=== PATIENT | male | born 1975 | race Caucasian/White ===

== ENCOUNTER 2025-04-23 19:25 | Inpatient (IN) | payer OTHER ==
[~2025-04-23] VITALS: Ht 185.4 cm; Wt 85.0 kg
[2025-04-23] MEDS: MIDAZOLAM INJ 2 MG/2 ML VIAL IV ONE (19:35)
[2025-04-23 19:42] LABS: VENOUS BASE EXCESS -3.2 (-2.0-2.0); VENOUS HCO3 22.9 MMOL/L (23.0-27.0); VENOUS O2 SATURATION 58.5 % (60.0-80.0); VENOUS PARTIAL PRESSURE CO2 45.5 mmHg (38.0-50.0); VENOUS PARTIAL PRESSURE O2 32.1 mmHg (30.0-50.0); VENOUS PH 7.319 UNITS (7.330-7.430); VENOUS STANDARD HCO3 21.2 MMOL/L; VENOUS TOTAL CO2 24.3 MMOL/L (24.0-28.0)
[2025-04-23] MEDS: MIDAZOLAM INJ 2 MG/2 ML VIAL IV STA ×2 (19:44→22:02)
[2025-04-23 19:50] LABS: BASO # 0.1 10^3/uL (0.0-0.2); BASO % 0.3 % (0.0-1.0); EOS # 0.3 10^3/uL (0.0-0.5); EOS % 1.3 % (0.0-3.0); LYMPH # 1.7 10^3/uL (1.5-5.0); LYMPH % 8.0 % (24.0-44.0); MONO # 1.3 10^3/uL (0.0-0.8); MONO % 6.2 % (2.0-8.0); NEUTROPHILS # 17.3 10^3/uL (1.5-8.5); NEUTROPHILS % 83.8 % (36.0-66.0); PLATELET COUNT, AUTOMATED 324 10^3/uL (150-450)
[2025-04-23 20:14] LABS: ETHYL ALCOHOL (ETHANOL) < 0.003 % (0.000-0.010)
[2025-04-23 20:15] LABS: CPK CREATINE PHOSPHOKINASE 65 U/L (46-171)
[2025-04-23 20:16] LABS: ALT/SGPT < 9 U/L (7.0-40); AST/SGOT 11 U/L (<34); CALCIUM LEVEL 8.3 MG/DL (8.5-10.1); CARBON DIOXIDE LEVEL 24 MMOL/L (20-31); CHLORIDE LEVEL 105 MMOL/L (98-107); CK-MB VALUE MASS 3.0 NG/ML (<3.6); CREATININE FOR GFR 2.29 MG/DL (0.70-1.30); GLOMERULAR FILTRATION RATE 33.9 (>56); MB/CK RELATIVE INDEX 4.61 (< OR =4); POTASSIUM SERUM 4.1 MMOL/L (3.5-5.1); SALICYLATE LEVEL < 3.0 MG/DL (<30); SODIUM LEVEL 138 MMOL/L (136-145)
[2025-04-23 20:18] LABS: KETONE, URINE AUTO RFX NEGATIVE (NEGATIVE); NITRITE, URINE AUTO RFX NEGATIVE (NEGATIVE); RBC, URINE AUTO RFX 24 /HPF (0-3); SQUAM EPITHELIAL CELL UR AURFX 1 /HPF (0-6); YEAST LIKE CELL URINE AUTO RFX LARGE
[2025-04-23 20:19] LABS: LEUKOCYTE ESTERASE UR AUTO RFX 3+ (NEGATIVE); WBC, URINE AUTO RFX 78 /HPF (0-3)
[2025-04-23 20:24] LABS: AMPHETAMINES LEVEL URINE NEGATIVE (NEGATIVE); BARBITURATES URINE NEGATIVE (NEGATIVE); BENZODIAZEPINES URINE NEGATIVE (NEGATIVE); COCAINE METABOLITE URINE NEGATIVE (NEGATIVE); METHADONE URINE NEGATIVE (NEGATIVE); OPIATES URINE NEGATIVE (NEGATIVE); PHENCYCLIDINE URINE NEGATIVE (NEGATIVE)
[2025-04-23 20:26] LABS: CANNABINOIDS URINE POSITIVE (NEGATIVE)
[2025-04-23] MEDS: CEFEPIME HCL 2 GM in DEXTROSE 5% (D5W) ADV/MINI-BAG 50 ML IV ONE (21:10)
[2025-04-23] MEDS: NS (Normal Saline) 0.9% 1,000 ML IV ONE ×2 (21:10→21:30)
[2025-04-23] MEDS ORDERED: VANCOMYCIN HCL 1,000 MG in IV FLUID PLACE HOLDER 1 EA IV ONE (22:05)
[2025-04-23] MEDS: VANCOMYCIN HCL 1,000 MG, VIAL MATE ADAPTER 1 EACH in NS 250 ML IV ONE (22:30)
[2025-04-23] MEDS ORDERED: LEVO75TA34 PO (22:41)
[2025-04-23] MEDS ORDERED: LISI40TA10 PO (22:41)
[2025-04-23] MEDS ORDERED: LANTINJ4 SC (22:41)
[2025-04-23] MEDS ORDERED: GABA-1172 PO (22:41)
[2025-04-23] MEDS ORDERED: METO1TAB7 PO (22:41)
[2025-04-23] MEDS ORDERED: OXYC10TA3 PO (22:41)
[2025-04-23] MEDS ORDERED: MIDO10TA3 PO (22:41)
[2025-04-23] MEDS ORDERED: ATIV1TAB10 PO (22:41)
[2025-04-23] MEDS ORDERED: VENTAER INH (22:41)
[2025-04-23] MEDS ORDERED: ATOR80TA59 PO (22:41)
[2025-04-23] MEDS ORDERED: MIRT-88 PO (22:41)
[2025-04-23] MEDS ORDERED: MED REC COMMENT (22:58)
[2025-04-23] MEDS ORDERED: FAMO40TA3 PO (23:14)
[2025-04-23] MEDS ORDERED: HOME MED LIST COMPLETE! XX SCH (23:15)
[2025-04-24] VITALS (25 sets, daily range): BP systolic 128–170; BP diastolic 68–87; TEMP 97.3–98.5; O2SAT 93–100
[2025-04-24] MEDS ORDERED: GLUCOSE 4 GM CHEW PO PRN ×2 (00:25→06:40)
[2025-04-24] MEDS ORDERED: GLUCAGON INJ 1 MG VIAL SC PRN ×2 (00:25→06:40)
[2025-04-24] MEDS ORDERED: DEXTROSE 50% 50 ML SYRINGE IV PRN ×2 (00:25→06:40)
[2025-04-24] MEDS ORDERED: CLOP75TA2 PO (00:43)
[2025-04-24] MEDS ORDERED: LEVO25TA5 PO (00:43)
[2025-04-24] MEDS: NS (Normal Saline) 0.9% 1,000 ML IV SCH (01:49)
[2025-04-24] MEDS: ACETAMINOPHEN *IV* 1,000 MG in IV 1 EA IV ONE (01:56)
[2025-04-24] MEDS: OLANZapine INTRAMUSCULAR 10MG VIAL IM STA ×2 (01:56→23:07)
[2025-04-24] MEDS: INSULIN LISPRO (NovoLOG) PER UNIT SC SCH (02:17)
[2025-04-24] MEDS: CEFEPIME HCL 2 GM in DEXTROSE 5% (D5W) ADV/MINI-BAG 50 ML IV SCH (05:04)
[2025-04-24 05:52] LABS: PLATELET COUNT, AUTOMATED 324 10^3/uL (150-450)
[2025-04-24 06:15] LABS: ALT/SGPT < 9 U/L (7.0-40); AST/SGOT 10 U/L (<34); CALCIUM LEVEL 8.2 MG/DL (8.5-10.1); CARBON DIOXIDE LEVEL 22 MMOL/L (20-31); CHLORIDE LEVEL 107 MMOL/L (98-107); CREATININE FOR GFR 2.37 MG/DL (0.70-1.30); GLOMERULAR FILTRATION RATE 32.6 (>56); POTASSIUM SERUM 3.9 MMOL/L (3.5-5.1); SODIUM LEVEL 140 MMOL/L (136-145)
[2025-04-24] MEDS ORDERED: VANCOMYCIN HCL 1,000 MG, VIAL MATE ADAPTER 1 EACH in NS 250 ML IV SCH (08:00)
[2025-04-24] MEDS: VANCOMYCIN HCL 1,000 MG, VIAL MATE ADAPTER 1 EACH in NS 250 ML IV SCH (08:37)
[2025-04-24] MEDS: CLOPIDOGREL 75 MG TAB PO SCH (09:00)
[2025-04-24] MEDS: HEPARIN SOD 5000 UNITS/ML 1 ML VIAL/SYRINGE SC SCH (09:00)
[2025-04-24] MEDS: METOPROLOL SUCC. 50 MG *XL* TAB PO SCH (09:00)
[2025-04-24] MEDS: ATORVASTATIN 20 MG TAB PO SCH (09:00)
[2025-04-24] MEDS: FAMOTIDINE 20 MG TAB PO SCH (09:00)
[2025-04-24] MEDS: LEVOTHYROXINE 25 MCG TABLET (0.025MG) PO SCH (10:51)
[2025-04-24] MEDS ORDERED: CEFEPIME HCL 2 GM in DEXTROSE 5% (D5W) ADV/MINI-BAG 50 ML IV SCH (17:00)
[2025-04-24] MEDS: METOPROLOL 5 MG/5 ML VIAL IV SCH (17:15)
[2025-04-24] MEDS: cefTRIAXone SOD 1 GM in DEXTROSE 5% (D5W) ADV/MINI-BAG 50 ML IV SCH (17:38)
[2025-04-24 20:37] LABS: CPK CREATINE PHOSPHOKINASE 43 U/L (46-171)
[2025-04-24] MEDS: MIRTAZAPINE 15 MG TAB PO SCH (20:42)
[2025-04-24] MEDS: cefTRIAXone SOD 1 GM in DEXTROSE 5% (D5W) ADV/MINI-BAG 50 ML IV ONE (20:42)
[2025-04-24] MEDS ORDERED: OLANZapine INTRAMUSCULAR 10MG VIAL IM ONE (22:55)
[2025-04-24] MEDS: DAPTOmycin 700 MG in NS 50 ML IV SCH (23:33)
[2025-04-25] VITALS (43 sets, daily range): BP systolic 152–189; BP diastolic 80–101; TEMP 97.1–98; O2SAT 89–99
[2025-04-25 05:29] LABS: BASO # 0.1 10^3/uL (0.0-0.2); BASO % 0.3 % (0.0-1.0); EOS # 0.1 10^3/uL (0.0-0.5); EOS % 0.7 % (0.0-3.0); LYMPH # 1.3 10^3/uL (1.5-5.0); LYMPH % 7.0 % (24.0-44.0); MONO # 1.2 10^3/uL (0.0-0.8); MONO % 6.6 % (2.0-8.0); NEUTROPHILS # 15.3 10^3/uL (1.5-8.5); NEUTROPHILS % 85.1 % (36.0-66.0); PLATELET COUNT, AUTOMATED 292 10^3/uL (150-450)
[2025-04-25 05:51] LABS: CALCIUM LEVEL 8.4 MG/DL (8.5-10.1); CARBON DIOXIDE LEVEL 19.0 MMOL/L (20-31); CHLORIDE LEVEL 112.0 MMOL/L (98-107); CREATININE FOR GFR 2.6 MG/DL (0.70-1.30); GLOMERULAR FILTRATION RATE 29.1 (>56); POTASSIUM SERUM 3.8 MMOL/L (3.5-5.1); SODIUM LEVEL 145.0 MMOL/L (136-145)
[2025-04-25 06:02] LABS: C REACTIVE PROTEIN QUANTITATIV 20.07 MG/DL (<1.0)
[2025-04-25] MEDS: LR 1,000 ML IV SCH (06:59)
[2025-04-25] MEDS: NICOTINE 14 MG/24 HR TRANSDERMAL TD SCH (10:23)
[2025-04-25] MEDS: SODIUM BICARBONATE 150 MEQ in D5W 1,000 ML IV SCH (13:25)
[2025-04-25] MEDS: LABETALOL 100 MG/20 ML VIAL IV STA (14:07)
[2025-04-25 16:18] LABS: VITAMIN B12 LEVEL 611.0 PG/ML (211-911)
[2025-04-25 16:20] LABS: IRON (FE) 17.0 UG/DL (65-175); PERCENT SATURATION 8.9 % (19.7-50.0)
[2025-04-25] MEDS: cefTRIAXone SOD 2 GM in DEXTROSE 5% (D5W) ADV/MINI-BAG 50 ML IV SCH (17:44)
[2025-04-25] MEDS: ONDANSETRON 4MG/2ML VIAL IV PRN (18:31)
[2025-04-25] MEDS: amLODIPine 10 MG TAB PO SCH (19:50)
[2025-04-25] MEDS: OLANZapine INTRAMUSCULAR 10MG VIAL IM ONE (21:46)
[2025-04-26] VITALS (42 sets, daily range): BP systolic 156–197; BP diastolic 74–102; TEMP 97–98.9; O2SAT 86–96
[2025-04-26 05:43] LABS: BASO # 0.0 10^3/uL (0.0-0.2); BASO % 0.3 % (0.0-1.0); EOS # 0.1 10^3/uL (0.0-0.5); EOS % 0.8 % (0.0-3.0); LYMPH # 1.2 10^3/uL (1.5-5.0); LYMPH % 9.4 % (24.0-44.0); MONO # 0.8 10^3/uL (0.0-0.8); MONO % 6.7 % (2.0-8.0); NEUTROPHILS # 10.3 10^3/uL (1.5-8.5); NEUTROPHILS % 82.4 % (36.0-66.0); PLATELET COUNT, AUTOMATED 281 10^3/uL (150-450)
[2025-04-26 06:13] LABS: CALCIUM LEVEL 8.2 MG/DL (8.5-10.1); CARBON DIOXIDE LEVEL 26.0 MMOL/L (20-31); CHLORIDE LEVEL 111.0 MMOL/L (98-107); CREATININE FOR GFR 2.32 MG/DL (0.70-1.30); GLOMERULAR FILTRATION RATE 33.4 (>56); POTASSIUM SERUM 3.3 MMOL/L (3.5-5.1); SODIUM LEVEL 149.0 MMOL/L (136-145)
[2025-04-26] MEDS ORDERED: GABAPENTIN 100 MG CAP PO SCH (09:00)
[2025-04-26] MEDS: KCL 10MEQ/100ML SWI (KRUN) 10 MEQ in IV 1 EA IV SCH (09:58)
[2025-04-26] MEDS: D5W 500 ML IV SCH (10:02)
[2025-04-26] MEDS: LABETALOL 100 MG/20 ML VIAL IV STA (11:52)
[2025-04-26] MEDS ORDERED: **hydrALAZINE** 10 MG TAB PO PRN (13:10)
[2025-04-26] MEDS: D5W/LR 1,000 ML IV SCH (13:43)
[2025-04-26] MEDS: GABAPENTIN 300 MG CAP PO SCH (13:45)
[2025-04-26] MEDS: amLODIPine 10 MG TAB PO SCH (13:45)
[2025-04-26] MEDS: NS (Normal Saline) 0.9% 1,000 ML IV SCH (17:23)
[2025-04-26] MEDS: METOPROLOL TART 50 MG TAB PO SCH (20:13)
[2025-04-27] VITALS (32 sets, daily range): BP systolic 103–163; BP diastolic 63–83; TEMP 98–98.6; O2SAT 92–100
[2025-04-27 06:27] LABS: BASO # 0.1 10^3/uL (0.0-0.2); BASO % 0.5 % (0.0-1.0); EOS # 0.3 10^3/uL (0.0-0.5); EOS % 3.0 % (0.0-3.0); LYMPH # 1.5 10^3/uL (1.5-5.0); LYMPH % 16.0 % (24.0-44.0); MONO # 0.8 10^3/uL (0.0-0.8); MONO % 8.4 % (2.0-8.0); NEUTROPHILS # 6.9 10^3/uL (1.5-8.5); NEUTROPHILS % 71.8 % (36.0-66.0); PLATELET COUNT, AUTOMATED 248 10^3/uL (150-450)
[2025-04-27 06:39] LABS: CALCIUM LEVEL 8.1 MG/DL (8.5-10.1); CARBON DIOXIDE LEVEL 27.0 MMOL/L (20-31); CHLORIDE LEVEL 107.0 MMOL/L (98-107); CREATININE FOR GFR 1.99 MG/DL (0.70-1.30); GLOMERULAR FILTRATION RATE 40.2 (>56); MAGNESIUM LEVEL 1.6 MG/DL (1.8-2.4); POTASSIUM SERUM 3.2 MMOL/L (3.5-5.1); SODIUM LEVEL 145.0 MMOL/L (136-145)
[2025-04-27] MEDS: KCL 10MEQ/100ML SWI (KRUN) 10 MEQ in IV 1 EA IV SCH (09:38)
[2025-04-27] MEDS: MAG SULF 1GM/100ML (MAG RUN) 1 GM in IV 1 EA IV SCH (09:38)
[2025-04-27] MEDS: LORazepam 0.5 MG TAB PO PRN (09:39)
[2025-04-27] MEDS: POTASSIUM CHLORIDE 10MEQ SR TABLET PO SCH (09:39)
[2025-04-27] MEDS: ALBUTEROL 90 MCG/ACT 8 GM HFA INHALER INH PRN (10:39)
[2025-04-28] VITALS (21 sets, daily range): BP systolic 118–150; BP diastolic 62–80; TEMP 98.1–99.1; O2SAT 91–100
[2025-04-28 05:44] LABS: PLATELET COUNT, AUTOMATED 249 10^3/uL (150-450)
[2025-04-28 06:08] LABS: CALCIUM LEVEL 7.8 MG/DL (8.5-10.1); CARBON DIOXIDE LEVEL 25.0 MMOL/L (20-31); CHLORIDE LEVEL 107.0 MMOL/L (98-107); CREATININE FOR GFR 2.16 MG/DL (0.70-1.30); GLOMERULAR FILTRATION RATE 36.4 (>56); POTASSIUM SERUM 4.3 MMOL/L (3.5-5.1); SODIUM LEVEL 140.0 MMOL/L (136-145)
[2025-04-28 07:58] LABS: MAGNESIUM LEVEL 1.9 MG/DL (1.8-2.4)
[2025-04-28] MEDS ORDERED: DEXTROSE 50% 50 ML SYRINGE IV PRN (09:30)
[2025-04-28] MEDS ORDERED: GLUCOSE 4 GM CHEW PO PRN (09:30)
[2025-04-28] MEDS ORDERED: GLUCAGON INJ 1 MG VIAL SC PRN (09:30)
[2025-04-28] MEDS: LR 1,000 ML IV SCH (10:16)
[2025-04-28] MEDS: INSULIN LISPRO (NovoLOG) PER UNIT SC SCH ×2 (12:34→20:39)
[2025-04-28] MEDS: GABAPENTIN 300 MG CAP PO ONE (15:38)
[2025-04-29] VITALS (23 sets, daily range): BP systolic 122–154; BP diastolic 63–93; TEMP 97.4–98.8; O2SAT 88–98
[2025-04-29 06:27] LABS: PLATELET COUNT, AUTOMATED 237 10^3/uL (150-450)
[2025-04-29 06:53] LABS: CALCIUM LEVEL 8.0 MG/DL (8.5-10.1); CARBON DIOXIDE LEVEL 23.0 MMOL/L (20-31); CHLORIDE LEVEL 105.0 MMOL/L (98-107); CREATININE FOR GFR 1.95 MG/DL (0.70-1.30); GLOMERULAR FILTRATION RATE 41.1 (>56); POTASSIUM SERUM 4.2 MMOL/L (3.5-5.1); SODIUM LEVEL 139.0 MMOL/L (136-145)
[2025-04-29 15:08] LABS: C REACTIVE PROTEIN QUANTITATIV 5.38 MG/DL (<1.0)
[2025-04-30] VITALS (30 sets, daily range): BP systolic 108–157; BP diastolic 58–84; TEMP 97.5–99.4; O2SAT 90–98
[2025-04-30 05:59] LABS: PLATELET COUNT, AUTOMATED 231 10^3/uL (150-450)
[2025-04-30 06:28] LABS: CALCIUM LEVEL 7.6 MG/DL (8.5-10.1); CARBON DIOXIDE LEVEL 27.0 MMOL/L (20-31); CHLORIDE LEVEL 106.0 MMOL/L (98-107); CREATININE FOR GFR 2.02 MG/DL (0.70-1.30); GLOMERULAR FILTRATION RATE 39.4 (>56); POTASSIUM SERUM 4.4 MMOL/L (3.5-5.1); SODIUM LEVEL 140.0 MMOL/L (136-145)
[2025-04-30 14:16] LABS: PLATELET COUNT, AUTOMATED 240 10^3/uL (150-450)
[2025-04-30] MEDS ORDERED: GABA-1172 PO (14:32)
[2025-04-30] MEDS ORDERED: AMLO1TAB25 PO (14:32)
[2025-04-30] MEDS ORDERED: NICO14PA TD (14:32)
== END 2025-04-30 16:55 | disposition home health service (06) | DRG 720 ==
LOC: M ED 19:25 → EDBD 19:25 → M ED INP 22:33 → M PCU 04-24 00:48
PROVIDERS: ADMIT Student in an Organized Health Care Education/Training Program; ATTEND Student in an Organized Health Care Education/Training Program
DX: A41.9 Sepsis, unspecified organism (principal); J18.9 Pneumonia, unspecified organism; N39.0 Urinary tract infection, site not specified; G93.41 Metabolic encephalopathy; I25.10 Atherosclerotic heart disease of native coronary artery without angina pectoris; I13.0 Hypertensive heart and chronic kidney disease with heart failure and stage 1 through stage 4 chronic kidney disease, or unspecified chronic kidney disease; E03.9 Hypothyroidism, unspecified; E11.9 Type 2 diabetes mellitus without complications; I50.30 Unspecified diastolic (congestive) heart failure; Z95.1 Presence of aortocoronary bypass graft; K21.9 Gastro-esophageal reflux disease without esophagitis; F41.0 Panic disorder [episodic paroxysmal anxiety]; S22.20XA Unspecified fracture of sternum, initial encounter for closed fracture; S22.42XA Multiple fractures of ribs, left side, initial encounter for closed fracture; W18.30XA Fall on same level, unspecified, initial encounter; Y92.009 Unspecified place in unspecified non-institutional (private) residence as the place of occurrence of the external cause; D64.9 Anemia, unspecified; E78.5 Hyperlipidemia, unspecified; N18.9 Chronic kidney disease, unspecified; Z79.899 Other long term (current) drug therapy; Z79.4 Long term (current) use of insulin; Z79.890 Hormone replacement therapy

== ENCOUNTER 2025-04-30 17:01 | Outpatient (CLI) | payer OTHER ==
[~2025-04-30] VITALS: Ht 182.9 cm; Wt 85.0 kg
[~2025-04-30 17:01] MED LIST: AMLO1TAB25 PO; ATIV1TAB10 PO; ATOR80TA59 PO; CLOP75TA2 PO; FAMO40TA3 PO; GABA-1172 PO; LANTINJ4 SC; LEVO25TA5 PO; LEVO75TA34 PO; LISI40TA10 PO; MED REC COMMENT; METO1TAB7 PO; MIDO10TA3 PO; MIRT-88 PO; NICO14PA TD; OXYC10TA3 PO; VENTAER INH
[2025-04-30] MEDS: DALBAVANCIN 1,500 MG in D5W 250 ML IV ONE (18:14)
[2025-04-30 18:20] VITALS: BP 133/70; O2SAT 94
[2025-04-30 18:40] VITALS: BP 146/78; O2SAT 96
[2025-04-30 19:05] VITALS: BP 146/81; O2SAT 93
== END 2025-04-30 19:23 | disposition home or self-care (01) ==
LOC: M PCU 17:01 → M OPCLIPCU 17:01
PROVIDERS: ATTEND Student in an Organized Health Care Education/Training Program
DX: M86.8X8 Other osteomyelitis, other site (principal); B95.62 Methicillin resistant Staphylococcus aureus infection as the cause of diseases classified elsewhere